=== PATIENT | male | born 1955 | race Caucasian/White ===

== ENCOUNTER 2017-02-19 13:21 | Observation (INO) | payer OTHER ==
[~2017-02-19] VITALS: Ht 180.3 cm; Wt 115.0 kg
[~2017-02-19 13:21] MED LIST: AMLO5 PO; PRAV20 PO; TOPI25 PO
[2017-02-19 13:24] VITALS: BP 163/83; PULSE 72; RESP 16; TEMP 98.3; O2SAT 93
[2017-02-19] MEDS ORDERED: SODIUM CHLORIDE 0.9% FLUSH 10 ML FLUSH IVF PRN (15:15)
[2017-02-19] MEDS ORDERED: ASPIRIN 81 MG CHEW TAB PO ONE (15:15)
[2017-02-19 15:24] LABS: AUTOMATED NEUTROPHIL # 5.2 TH/MM3 (1.8-7.7); BASOPHIL % 0.6 % (0.0-2.0); EOSINOPHIL # 0.3 TH/MM3 (0-0.4); HEMATOCRIT 41.3 % (39.0-51.0); HEMO FLAGS DIFF FINAL; LYMPH % 19.2 % (9.0-44.0); LYMPHOCYTE # 1.5 TH/MM3 (1.0-4.8); MEAN CELL VOLUME 89.3 FL (80.0-100.0); MEAN CORPUSCULAR HGB CONC 34.8 % (32.0-36.0); MONO % 7.2 % (0.0-8.0); PLATELET COUNT 217 TH/MM3 (150-450); RED BLOOD COUNT 4.62 MIL/MM3 (4.50-5.90); RED CELL DISTRIBUTION WIDTH 13.2 % (11.6-17.2); WHITE BLOOD COUNT 7.6 TH/MM3 (4.0-11.0)
--- NOTE | 2017-02-19 15:26 | PD ---
HPI Chief Complaint: Chest Pain Time Seen by Provider: 14:53 Travel History International Travel<30 days: No Contact w/Intl Traveler<30days: No Traveled to known affect area: No History of Present Illness HPI This is a 61-year-old gentleman with a history of hypertension, hyperlipidemia, who presents today with complaints of left sided chest pain with radiation down his left arm. Patient reports that he experienced the left sided chest pain about 10 AM. He reports it as a pressure and heaviness. He reports the pain radiates to his left shoulder and down his left arm. He reports that as an achy sensation and also reports that he has tingling and numbness to his fingers. He does give history that he has the achy sensation down his arm with a tingling at times without the chest pain. He reports that he does have a history of cervical spine degenerative changes. Patient also gives history of these had a "full sensation" in his head. He also reports that he has some blurry vision in his left eye. The patient does wear glasses and states that he had similar symptoms about a year and a half ago and that's when I told him he needed glasses. He has not seen the bolt header in a while and does admit that is possible vision related secondary to him doing a lot of computer work and reading. There is no associated nausea or diaphoresis with the chest pain. He denies any shortness of breath. PFSH Past Medical History Blood Disorders: No Heart Rhythm Problems: No Cancer: No Cardiac Catheterization: No Cardiovascular Problems: Yes High Cholesterol: Yes Chest Pain: No Congestive Heart Failure: No Diabetes: No Endocrine: No Genitourinary: No Hypertension: No Immune Disorder: No Musculoskeletal: No Neurologic: Yes (headaches, "pinched nerve" in neck ) Psychiatric: No Reproductive: No Respiratory: No Myocardial Infarction: No Past Surgical History Coronary Artery Bypass Graft: No Social History Alcohol Use: No Tobacco Use: No Substance Use: No (marijuana, cocaine, crack, speed, none x 6 years ) Allergies-Medications (Allergen,Severity, Reaction): Coded Allergies: No Known Allergies (Verified , 02/19/17) Reported Meds & Prescriptions Reported Meds & Active Scripts Active Reported Artificial Tears Opth Drops (Polyvinyl Alcohol) 1.4% Soln 1-2 Drop EACH EYE PRN PRN Pravastatin 40 Mg Tab 40 Mg PO DAILY Amlodipine (Amlodipine Besylate) 5 Mg Tab 5 Mg PO DAILY PRN Review of Systems Except as stated in HPI: all other systems reviewed are Neg General / Constitutional: No: Fever, Chills Eyes: Positive: Blurred Vision HENT: Positive: Headaches (no true had pain but fullness), No: Lightheadedness , Neck Stiffness, Neck Pain Cardiovascular: Positive: Chest Pain or Discomfort (left sided), No: Palpitations, Irregular Rhythm Respiratory: No: Cough, Shortness of Breath Gastrointestinal: No: Nausea, Vomiting, Abdominal Pain Musculoskeletal: No: Pain Neurologic: Positive: Headache, No: Weakness, Dizziness, Change in Mentation Physical Exam Narrative GENERAL: Well developed well-nourished male in no acute respiratory distress. SKIN: Focused skin assessment warm/dry. HEAD: Atraumatic. Normocephalic. EYES: No scleral icterus. No injection or drainage. ENT: No nasal bleeding or discharge. Mucous membranes pink and moist. NECK: Trachea midline. Supple. CARDIOVASCULAR: Regular rate and rhythm. No murmur appreciated. RESPIRATORY: No accessory muscle use. Clear to auscultation. Breath sounds equal bilaterally. GASTROINTESTINAL: Abdomen soft, non-tender, nondistended. MUSCULOSKELETAL: No obvious deformities. No edema. NEUROLOGICAL: Awake and alert. No obvious cranial nerve deficits. Motor grossly within normal limits. Normal speech. Data Data Last Documented VS Vital Signs Date Time Temp Pulse Resp B/P Pulse Ox O2 Delivery O2 Flow Rate FiO2 02/19/17 15:39 61 16 139/76 96 Room Air 02/19/17 13:24 98.3 Orders Electrocardiogram (02/19/17 ) Basic Metabolic Panel (Bmp) (02/19/17 15:05) Ckmb (Isoenzyme) Profile (02/19/17 15:05) Complete Blood Count With Diff (02/19/17 15:05) Magnesium (Mg) (02/19/17 15:05) Prothrombin Time / Inr (Pt) (02/19/17 15:05) Act Partial Throm Time (Ptt) (02/19/17 15:05) Troponin I (02/19/17 15:05) Chest, Single Ap (02/19/17 15:05) Ecg Monitoring (02/19/17 15:05) Bilateral Bp Monitoring (02/19/17 15:05) Iv Access Insert/Monitor (02/19/17 15:05) Oximetry (02/19/17 15:05) Oxygen Administration (02/19/17 15:05) Aspirin Chew (Aspirin Chew) (02/19/17 15:15) Sodium Chloride 0.9% Flush (Ns Flush) (02/19/17 15:15) Ct Brain W/O Iv Contrast(Rout) (02/19/17 15:05) CKMB (02/19/17 15:10) CKMB% (02/19/17 15:10) Admit Order (Ed Use Only) (02/19/17 16:28) Labs Laboratory Tests Test 02/19/17 15:10 White Blood Count 7.6 TH/MM3 Red Blood Count 4.62 MIL/MM3 Hemoglobin 14.3 GM/DL Hematocrit 41.3 % Mean Corpuscular Volume 89.3 FL Mean Corpuscular Hemoglobin 31.0 PG Mean Corpuscular Hemoglobin 34.8 % Concent Red Cell Distribution Width 13.2 % Platelet Count 217 TH/MM3 Mean Platelet Volume 8.2 FL Neutrophils (%) (Auto) 69.0 % Lymphocytes (%) (Auto) 19.2 % Monocytes (%) (Auto) 7.2 % Eosinophils (%) (Auto) 4.0 % Basophils (%) (Auto) 0.6 % Neutrophils # (Auto) 5.2 TH/MM3 Lymphocytes # (Auto) 1.5 TH/MM3 Monocytes # (Auto) 0.5 TH/MM3 Eosinophils # (Auto) 0.3 TH/MM3 Basophils # (Auto) 0.0 TH/MM3 CBC Comment DIFF FINAL Differential Comment Prothrombin Time 10.4 SEC Prothromb Time International 0.9 RATIO Ratio Activated Partial 28.9 SEC Thromboplast Time Sodium Level 139 MEQ/L Potassium Level 3.9 MEQ/L Chloride Level 104 MEQ/L Carbon Dioxide Level 27.9 MEQ/L Anion Gap 7 MEQ/L Blood Urea Nitrogen 14 MG/DL Creatinine 1.10 MG/DL Estimat Glomerular Filtration 68 ML/MIN Rate Random Glucose 90 MG/DL Calcium Level 8.6 MG/DL Magnesium Level 2.2 MG/DL Total Creatine Kinase 296 U/L Creatine Kinase MB 2.2 NG/ML Troponin I LESS THAN 0.02 NG/ML MDM Medical Decision Making Medical Screen Exam Complete: Yes Emergency Medical Condition: Yes Differential Diagnosis ACS versus musculoskeletal pain versus cervical radiculopathy Narrative Course 61-year-old gentleman who presents today with complaints of sided chest pain that radiates to his left arm. Patient states that he also has achy sensation and tingling in his left arm. Patient also complaining of full sensation in his head with blurry vision left eye. The patient does a lot of reading is scheduled for an optometry exam at the [facility]. The patient has no focal neurologic symptoms. Looking back in his history he had similar complaints a urinary half ago and was found to have poor vision. At that time they started him on a blood pressure pill and a statin. EKG shows no evidence of acute findings. Cardiac enzymes are within normal limits. Given the patient's presenting symptoms and his concern for having a "heart" issue, we'll place him in the chest pain center for rule out protocol. The patient is amenable to this plan. Diagnosis Primary Impression: Chest pain Additional Impressions: History of hypertension History of hyperlipidemia Blurred vision, left eye Aden Gamino MD Feb 19, 2017 15:26
[2017-02-19 15:39] VITALS: BP 139/76; PULSE 61; RESP 16; O2SAT 96
[2017-02-19 15:46] LABS: INTERNATIONAL NORMALIZED RATIO 0.9 RATIO; PROTHROMBIN TIME - PATIENT 10.4 SEC (9.8-11.6)
[2017-02-19] MEDS ORDERED: POLY99.0 EACH EYE (15:47)
[2017-02-19] MEDS ORDERED: AMLO5TAB2 PO (15:47)
[2017-02-19] MEDS ORDERED: PRAV40TA2 PO (15:47)
[2017-02-19 15:51] LABS: APTT (PATIENT) 28.9 SEC (24.3-30.1)
[2017-02-19 15:56] LABS: ANION GAP 7 MEQ/L (5-15); BICARBONATE 27.9 MEQ/L (21.0-32.0); BLOOD UREA NITROGEN 14 MG/DL (7-18); CHLORIDE 104 MEQ/L (98-107); GLOMERULAR FILTRATION RATE 68 ML/MIN (>89); MAGNESIUM 2.2 MG/DL (1.5-2.5); POTASSIUM 3.9 MEQ/L (3.5-5.1); SODIUM (NA) 139 MEQ/L (136-145)
[2017-02-19 15:59] LABS: CREATINE KINASE 296 U/L (39-308)
[2017-02-19 16:12] LABS: CKMB 2.2 NG/ML (0.5-3.6)
--- NOTE | 2017-02-19 16:20 | RADRPT ---
EXAM DATE/TIME: 02/19/2017 15:18 [facility] COMPARISON: No previous studies available for comparison. INDICATIONS : Chest pain. MEDICAL HISTORY : None. SURGICAL HISTORY : None. ENCOUNTER: Initial ACUITY: 1 day PAIN SCORE: 0/10 LOCATION: Bilateral chest FINDINGS: Single AP view of the chest. The lungs are clear. Cardiomediastinal silhouette within normal limits. No evidence of pleural effusion or pneumothorax. CONCLUSION: No acute cardiopulmonary disease identified. King Licea MD on February 19, 2017 at 16:18 Board Certified Radiologist. This report was verified electronically.
--- NOTE | 2017-02-19 16:52 | RADRPT ---
EXAM DATE/TIME: 02/19/2017 15:27 [facility] COMPARISON: CT BRAIN W/O CONTRAST, November 07, 2015, 13:08. INDICATIONS : Chest pain that radiates to left arm with blurry vision . RADIATION DOSE: 37.30 CTDIvol (mGy) MEDICAL HISTORY : Cardiovascular disease. SURGICAL HISTORY : None. ENCOUNTER: Initial ACUITY: 1 day PAIN SCALE: 3/10 LOCATION: cranial TECHNIQUE: Multiple contiguous axial images were obtained of the head. Using automated exposure control and adj ustment of the mA and/or kV according to patient size, radiation dose was kept as low as reasonably a chievable to obtain optimal diagnostic quality images. FINDINGS: CEREBRUM: The ventricles are normal for age. No evidence of midline shift, mass lesion, hemorrhage or acute in farction. No extra-axial fluid collections are seen. POSTERIOR FOSSA: The cerebellum and brainstem are intact. The 4th ventricle is midline. The cerebellopontine angle i s unremarkable. EXTRACRANIAL: The visualized portion of the orbits is intact. SKULL: The calvaria is intact. No evidence of skull fracture. CONCLUSION: 1. No evidence of acute intracranial pathology. No masses are identified. Luke Self MD on February 19, 2017 at 16:50 Board Certified Radiologist. This report was verified electronically.
--- NOTE | 2017-02-19 17:22 | HHI.HP ---
HPI Primary Care Physician [facility] Chief Complaint Chest pain History of Present Illness This is a 61-year-old male with history of hypertension, hyperlipidemia, and past tobacco abuse that presents to the ED via private vehicle complaining of a left-sided sharp chest discomfort that began this morning while at work. It will last for split-second but reoccurred multiple times. Found nothing in particular to bring on the discomfort. He became concerned when he began have shortness of breath with walking. This was not necessarily associated with his discomforts. He also had a numbness reading from the neck down to his left arm with tingling in his left fingers. Also complained of bilateral blurred vision. Denied weakness in extremities. Some of these symptoms he had in the past. He was here in 2014 and was seen by a neurologist and was found to have degenerative the issues within his cervical spine and underwent physical therapy and followed up with a neurologist at the [facility]. He is not sure if the symptoms from his neck into his arm are related to that or if it's related to his discomfort in his chest. Denies recent illness. Denies fevers or chills. He had a nonischemic nuclear exercise treadmill stress test in 2009. No cardiac workup since. Review of Systems General: Patient denies fevers, chills recent, and recent travel HEENT: Patient denies headache, sore throat, difficulty swallowing. Cardiovascular: Has the chest discomfort as mentioned above. Denies sensation of heart beating rapidly or irregularly. No syncope. Denies diaphoresis. Respiratory: Occasional shortness of breath. Denies inspirational chest discomfort. Denies coughing wheezing or hemoptysis. GI: Patient denies nausea, vomiting, diarrhea, abdominal pain, bloody stools. Musculoskeletal: Patient denies joint pain or edema. Denies calf pain or edema. Complaint of left-sided neck discomfort that seemed to radiate down his left arm. Neurovascular: Complain of a discomfort radiating from his left neck down his left arm with tingling in his fingertips. Patient denies weakness in extremities. Denies headache. Endocrine: Denies polyuria and polydipsia. Hematologic: Denies easy bruising. Skin: Denies rash or itching. Past Family Social History Allergies: Coded Allergies: No Known Allergies (Verified , 02/19/17) Past Medical History Hypertension, hyperlipidemia, past history of tobacco abuse, cervical degenerative changes. Denies diabetes and known CAD. Past Surgical History Noncontributory. Reported Medications Reported Meds & Active Scripts Active Reported Artificial Tears Opth Drops (Polyvinyl Alcohol) 1.4% Soln 1-2 Drop EACH EYE PRN PRN Pravastatin 40 Mg Tab 40 Mg PO DAILY Amlodipine (Amlodipine Besylate) 5 Mg Tab 5 Mg PO DAILY PRN Active Ordered Medications Current Medications Medications (Trade) Dose Ordered Sig/Zane Route Start Time Stop Time Status Last Admin (NS Flush) 2 ml UNSCH PRN IVF 02/19/17 15:15 Family History His father has CAD. Social History Patient quit smoking cigarettes 6-1/2 years ago as well as quitting illicit drug use and alcohol abuse. 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 He used to smoke 2-1/2 packs a day for about 30 years. Physical Exam Vital Signs Vital Signs Date Time Temp Pulse Resp B/P Pulse Ox O2 Delivery O2 Flow Rate FiO2 02/19/17 15:39 61 16 139/76 96 Room Air 02/19/17 13:24 98.3 72 16 163/83 93 Physical Exam GENERAL: This is a well-nourished, well-developed patient, in no apparent distress. Patient speaks in clear complete sentences. Patient is pleasant. HEENT: Head is atraumatic and normocephalic. Neck is supple without lymphadenopathy and trachea is midline. No JVD or carotid bruits. CARDIOVASCULAR: Grade 2 systolic murmur left sternal border. Regular rate and rhythm without gallops, or rubs. RESPIRATORY: Left upper chest wall is a tender spot that is the same area that was hurting earlier today. Clear to auscultation. Breath sounds equal bilaterally. No wheezes, rales, or rhonchi. No use of accessory muscles. GASTROINTESTINAL: Abdomen is nontender, nondistended. Abdomen soft. No obvious pulsatile mass or bruit. No CVA tenderness. Strong femoral pulses bilaterally. Normal bowel sounds in all quadrants. MUSCULOSKELETAL: Patient is moving upper and lower extremities freely. No calf tenderness or edema, no Homans sign. Strong pulses in upper and lower extremities. NEUROLOGICAL: Patient is alert and oriented. Cranial nerves 2-12 are grossly intact. No focal deficits and speech is clear. SKIN: No rash and turgor is normal. Laboratory Laboratory Tests Test 02/19/17 15:10 White Blood Count 7.6 Red Blood Count 4.62 Hemoglobin 14.3 Hematocrit 41.3 Mean Corpuscular Volume 89.3 Mean Corpuscular Hemoglobin 31.0 Mean Corpuscular Hemoglobin 34.8 Concent Red Cell Distribution Width 13.2 Platelet Count 217 Mean Platelet Volume 8.2 Neutrophils (%) (Auto) 69.0 Lymphocytes (%) (Auto) 19.2 Monocytes (%) (Auto) 7.2 Eosinophils (%) (Auto) 4.0 Basophils (%) (Auto) 0.6 Neutrophils # (Auto) 5.2 Lymphocytes # (Auto) 1.5 Monocytes # (Auto) 0.5 Eosinophils # (Auto) 0.3 Basophils # (Auto) 0.0 CBC Comment DIFF FINAL Differential Comment Prothrombin Time 10.4 Prothromb Time International 0.9 Ratio Activated Partial 28.9 Thromboplast Time Sodium Level 139 Potassium Level 3.9 Chloride Level 104 Carbon Dioxide Level 27.9 Anion Gap 7 Blood Urea Nitrogen 14 Creatinine 1.10 Estimat Glomerular Filtration 68 Rate Random Glucose 90 Calcium Level 8.6 Magnesium Level 2.2 Total Creatine Kinase 296 Creatine Kinase MB 2.2 Troponin I LESS THAN 0.02 Result Diagram: 02/19/17 1510 02/19/17 1510 Imaging Last [address] 02/19/17 1505 Signed Impressions: Service Date/Time: Sunday, February 19, 2017 15:27 - CONCLUSION: 1. No evidence of acute intracranial pathology. No masses are identified. Luke Self MD Chest X-Ray 02/19/17 1505 Signed Impressions: Service Date/Time: Sunday, February 19, 2017 15:18 - CONCLUSION: No acute cardiopulmonary disease identified. King Licea MD Course Initial EKG is sinus rhythm without significant ST segment depressions or elevations. Assessment and Plan Assessment and Plan * Chest pain: Patient will continue to have serial cardiac enzymes and EKGs for ruling out purposes. He will be seen by Dr. Luke Hassan of cardiology in the chest pain center in the morning and will likely undergo another nuclear ETT if he rules out. He will likely be discharged home with instructions to follow-up with his physician if stress testing were to be nonischemic. * Hypertension: Continue current medication. * Hyperlipidemia: Continue current medication. Patient is stable this time. He is agreeable to this plan. Lenard Ching Feb 19, 2017 17:22
[2017-02-19] MEDS ORDERED: SODIUM CHLORIDE 0.9% FLUSH 5 ML FLUSH IVF PRN (17:30)
[2017-02-19] MEDS ORDERED: ALPRAZolam 0.25 MG TAB PO PRN (17:30)
[2017-02-19] MEDS ORDERED: ACETAMINOPHEN/HYDROcodone 325 MG/7.5 MG TAB PO PRN (17:30)
[2017-02-19] MEDS: PANTOPRAZOLE SOD 40 MG DELAYED RELEASE TAB PO SCH (17:30)
[2017-02-19] MEDS ORDERED: RESP: ALBUTEROL 2.5 MG/IPRATROPIUM 0.5 MG NEB (PRN) INH (17:30)
[2017-02-19] MEDS ORDERED: ONDANSETRON HCL 4 MG/2 ML VIAL IV PRN (17:30)
[2017-02-19] MEDS ORDERED: ACETAMINOPHEN 500 MG CPLT PO PRN (17:30)
[2017-02-19] MEDS ORDERED: cloNIDine HCL 0.1 MG TAB PO PRN (17:30)
[2017-02-19 19:21] LABS: CREATINE KINASE 278 U/L (39-308)
[2017-02-19 19:34] LABS: CKMB 1.9 NG/ML (0.5-3.6)
[2017-02-19 20:07] VITALS: BP 185/88; PULSE 50; RESP 20; TEMP 97.5; O2SAT 97
[2017-02-19] MEDS: SODIUM CHLORIDE 0.9% FLUSH 5 ML FLUSH IVF SCH (21:00)
[2017-02-19 21:40] LABS: CREATINE KINASE 236 U/L (39-308)
[2017-02-19 21:52] LABS: CKMB 2.2 NG/ML (0.5-3.6)
--- NOTE | 2017-02-19 22:24 | EKG ---
Date Performed: 02/19/2017 Time Performed: 18:37:59 PTAGE: 61 years EKG: SINUS BRADYCARDIA VOLTAGE CRITERIA FOR LVH ABNORMAL ECG PREVIOUS TRACING : 02/19/2017 13.50 Compared to prior tracing no significant change DOCTOR: Chemo Rodriguez Interpretating Date/Time 02/19/2017 22:20:43
--- NOTE | 2017-02-19 22:33 | EKG ---
Date Performed: 02/19/2017 Time Performed: 13:50:18 PTAGE: 61 years EKG: Sinus rhythm VOLTAGE CRITERIA FOR LVH NONSPECIFIC T-WAVE ABNORMALITY ABNORMAL ECG Compared to the PREVIOUS TRACING PVCs no longer present DOCTOR: Chemo Rodriguez Interpretating Date/Time 02/19/2017 22:32:05
[2017-02-20 00:07] VITALS: PULSE 51
[2017-02-20 00:33] VITALS: BP 120/57; PULSE 55; RESP 20; TEMP 98.7; O2SAT 95
[2017-02-20 04:53] VITALS: BP 141/87; PULSE 56; RESP 20; TEMP 97.6; O2SAT 95
[2017-02-20 07:39] VITALS: BP 136/82; PULSE 53; RESP 18; TEMP 97.3; O2SAT 94
[2017-02-20] MEDS: PANTOPRAZOLE SOD 40 MG DELAYED RELEASE TAB PO SCH (08:21)
[2017-02-20] MEDS: SODIUM CHLORIDE 0.9% FLUSH 5 ML FLUSH IVF SCH (08:25)
[2017-02-20] MEDS ORDERED: ASPIRIN 325 MG TAB PO SCH (09:00)
[2017-02-20] MEDS ORDERED: amLODIPine BESYLATE 5 MG TAB PO SCH (09:00)
[2017-02-20] MEDS ORDERED: PRAVASTATIN SOD 40 MG TAB PO SCH (09:00)
[2017-02-20] MEDS ORDERED: REGADENOSON INJ 0.4 MG/5 ML SYR ONE (09:21)
--- NOTE | 2017-02-20 10:46 | RADRPT ---
EXAM DATE/TIME: 02/20/2017 08:47 [facility] COMPARISON: No previous studies available for comparison. INDICATIONS : Left chest pain radiating to left arm for 1 day. Angina. DOSE: 35 mCi Tc99m Myoview at stress. 11 mCi Tc99m Myoview at rest. 0.4 mg Lexiscan STRESS SYMPTOMS: Tingling, chest tightness, head pressure and nausea. EJECTION FRACTION: 59% MEDICAL HISTORY : Hypercholesterolemia. Hypertension. Gastroesophageal reflux disease. Substance abuse. SURGICAL HISTORY : None. ENCOUNTER: Initial ACUITY: 1 day PAIN SCALE: 5/10 LOCATION: Left chest TECHNIQUE: The patient underwent pharmacologic stress with infusion of prescribed dose. Continuous ECG tracing was monitored during stress. Gated SPECT imaging was performed after stress and conventional SPECT i maging was performed at rest. The examination was performed on a SPECT/CT scanner, both attenuation and non-corrected datasets were reviewed. FINDINGS: DISTRIBUTION: The maximum perfused segment at stress is in the inferior wall. PERFUSION STUDY: There is minimal redistribution in the mid anterior wall of borderline significance GATED STUDY: There is intact wall motion and thickening without hypokinetic or dyskinetic segments. CONCLUSION: Minimal redistribution anterior wall involving the small segment myocardium with normal wall motion o f borderline significance. RISK CATEGORY: Low (<1% Annual Mortality Rate) Da Mckeon MD FACR on February 20, 2017 at 10:35 Board Certified Radiologist. This report was verified electronically.
--- NOTE | 2017-02-20 11:10 | HHI.DCPOC ---
Discharge Care Plan Diagnosis: (1) Chest pain (2) HTN (hypertension) (3) HLD (hyperlipidemia) Goals to Promote Your Health * To prevent worsening of your condition and complications * To maintain your health at the optimal level Directions to Meet Your Goals Take your medications as prescribed Follow your dietary instruction Follow activity as directed Keep your appointments as scheduled Take your immunizations and boosters as scheduled If your symptoms worsen call your PCP, if no PCP go to Urgent Care Center or Emergency Room Smoking is Dangerous to Your Health. Avoid second hand smoke Call the 24-hour hour crisis hotline for domestic abuse at Lenard Ching Feb 20, 2017 11:10
[2017-02-20 11:21] VITALS: BP 136/61; PULSE 91; RESP 17; TEMP 98.1; O2SAT 94
[2017-02-20 11:39] VITALS: PULSE 56
--- NOTE | 2017-02-20 13:38 | EKG ---
Date Performed: 02/19/2017 Time Performed: 21:18:16 PTAGE: 61 years EKG: SINUS BRADYCARDIA MODERATE VOLTAGE CRITERIA FOR LVH, CONSIDER NORMAL VARIANT BORDERLINE ECG PREVIOUS TRACING : 02/19/2017 18.37 Since previous tracing, no significant change noted DOCTOR: Luke Hassan Interpretating Date/Time 02/20/2017 13:37:40
--- NOTE | 2017-02-20 13:48 | TR ---
Date Performed: 02/20/2017 Time Performed: 09:17:05 DOCTOR: Luke Hassan DRUG LIST: CLINICAL HISTORY: REASON FOR TEST: CHEST PAIN REASON FOR ENDING: OBSERVATION: CONCLUSION: Lexiscan stress test was performed under standard four minute protocol. Radionuclid e was injected one minute prior to ending the test. No electrocardiographic abormalities were present to suggest ischemia. Nuclear imaging and interpretation are pending. COMMENTS:
== END 2017-02-20 11:47 | disposition home or self-care (01) ==
LOC: NEPE 13:21 → NEDA 16:31 → NEPGCP 19:02
PROVIDERS: ADMIT Internal Medicine Interventional Cardiology; ATTEND Internal Medicine Interventional Cardiology
DX: R07.9 Chest pain, unspecified (principal); I10 Essential (primary) hypertension; E78.5 Hyperlipidemia, unspecified; M79.602 Pain in left arm; R20.2 Paresthesia of skin; R20.0 Anesthesia of skin; H53.8 Other visual disturbances; E78.00 Pure hypercholesterolemia, unspecified; R51 Headache; Z87.891 Personal history of nicotine dependence; R06.02 Shortness of breath; R00.1 Bradycardia, unspecified; R94.31 Abnormal electrocardiogram [ECG] [EKG]
CPT/HCPCS: 70450; 71010; 78452; 80048; 82550; 82552; 83735; 84484; 85025; 85610; 85730; 93005; 93017; 99285; A9502; G0378; J2785

== ENCOUNTER 2017-02-21 12:21 | Observation (INO) | payer OTHER ==
[2017-02-21] VITALS (9 sets, daily range): BP systolic 124–135; BP diastolic 75–83; PULSE 54–62; RESP 16–18; TEMP 98–98.3; O2SAT 95–97
[~2017-02-21] VITALS: Ht 175.3 cm; Wt 106.8 kg
[~2017-02-21 12:21] MED LIST changes: +AMLO5TAB2 PO; +IOHEXOL 350 MG/ML 100 ML BTL (for Cath Lab) OTHER ONE; +IOHEXOL 350 MG/ML 50 ML BTL (for Cath Lab) OTHER ONE; +POLY99.0 EACH EYE; +PRAV40TA2 PO
--- NOTE | 2017-02-21 12:47 | PD ---
HPI Chief Complaint: chest pain Time Seen by Provider: 12:47 Travel History International Travel<30 days: No Contact w/Intl Traveler<30days: No Traveled to known affect area: No History of Present Illness HPI 61-year-old male came to the emergency room sent from [place] for chest pain which is left-sided radiating down to his left arm. Patient says it feels like a pressure on the chest and the arm feels numb. He has had this pain on and off for few days now. In fact he was in the emergency room and admitted to the chest pain center couple days ago for the same thing. He had a chemical stress test and was discharged home. However his pain continued and he went back to [place] today and they asked him to go back to the emergency room. Currently he says he is chest pain-free but his arm feels a little numb. No history of shortness of breath or diaphoresis. No history of syncopal episode. No history of arm weakness. Vital signs were relatively stable. Patient does not have history of coronary artery disease. He was given 4 baby aspirin at [place] before coming here. [facility] Past Medical History Narrative Medical List of his past medical, surgical, social and family history was reviewed from the nursing note. Blood Disorders: No Heart Rhythm Problems: No Cancer: No Cardiac Catheterization: No Cardiovascular Problems: Yes High Cholesterol: Yes Chest Pain: No Congestive Heart Failure: No Diabetes: No Endocrine: No Gastrointestinal Disorders: Yes (Hx: GERD) Genitourinary: No Hypertension: No Immune Disorder: No Musculoskeletal: No Neurologic: Yes (headaches, "pinched nerve" in neck ) Psychiatric: No Reproductive: No Respiratory: No Myocardial Infarction: No Past Surgical History Coronary Artery Bypass Graft: No Other Surgery: Yes Social History Alcohol Use: No Tobacco Use: No Substance Use: No (marijuana, cocaine, crack, speed, none x 6 years ) Allergies-Medications (Allergen,Severity, Reaction): Coded Allergies: No Known Allergies (Verified , 02/21/17) Comments No known drug allergies. Reported Meds & Prescriptions Reported Meds & Active Scripts Active Reported Artificial Tears Opth Drops (Polyvinyl Alcohol) 1.4% Soln 1-2 Drop EACH EYE PRN PRN Pravastatin 40 Mg Tab 40 Mg PO DAILY Amlodipine (Amlodipine Besylate) 5 Mg Tab 5 Mg PO DAILY PRN Narrative Medication List of his home medications reviewed from the nursing note. Review of Systems Except as stated in HPI: all other systems reviewed are Neg Physical Exam Narrative GENERAL: Awake, alert, no obvious distress SKIN: Focused skin assessment warm/dry. HEAD: Atraumatic. Normocephalic. EYES: Pupils equal and round. No scleral icterus. No injection or drainage. ENT: No nasal bleeding or discharge. Mucous membranes pink and moist. NECK: Trachea midline. No JVD. CARDIOVASCULAR: Regular rate and rhythm. No murmur appreciated. RESPIRATORY: No accessory muscle use. Clear to auscultation. Breath sounds equal bilaterally. GASTROINTESTINAL: Abdomen soft, non-tender, nondistended. Hepatic and splenic margins not palpable. MUSCULOSKELETAL: No obvious deformities. No clubbing. No cyanosis. No edema. NEUROLOGICAL: Awake and alert. No obvious cranial nerve deficits. Motor grossly within normal limits. Normal speech. PSYCHIATRIC: Appropriate mood and affect; insight and judgment normal. Data Data Last Documented VS Vital Signs Date Time Temp Pulse Resp B/P Pulse Ox O2 Delivery O2 Flow Rate FiO2 02/21/17 12:42 61 18 124/76 95 Orders Electrocardiogram (02/21/17 13:05) Basic Metabolic Panel (Bmp) (02/21/17 13:05) Ckmb (Isoenzyme) Profile (02/21/17 13:05) Complete Blood Count With Diff (02/21/17 13:05) Magnesium (Mg) (02/21/17 13:05) Prothrombin Time / Inr (Pt) (02/21/17 13:05) Act Partial Throm Time (Ptt) (02/21/17 13:05) Troponin I (02/21/17 13:05) CKMB (02/21/17 13:15) CKMB% (02/21/17 13:15) Heparin Infusion ELIO.Q1H (02/21/17 14:17) Heparin Inj (Heparin Inj) (02/21/17 20:30) Heparin Inj (Heparin Inj) (02/21/17 20:30) Heparin-D5w Inj (Heparin-D5w Inj) (02/21/17 14:30) Act Partial Throm Time (Ptt) (02/21/17 21:17) Heparin-Ns/Pf Inj (Heparin-Ns/Pf Inj) (02/21/17 14:47) Admit Order (Ed Use Only) (02/21/17 15:02) Labs Laboratory Tests Test 02/21/17 13:15 White Blood Count 7.4 TH/MM3 Red Blood Count 4.71 MIL/MM3 Hemoglobin 14.2 GM/DL Hematocrit 42.1 % Mean Corpuscular Volume 89.3 FL Mean Corpuscular Hemoglobin 30.1 PG Mean Corpuscular Hemoglobin 33.8 % Concent Red Cell Distribution Width 13.4 % Platelet Count 210 TH/MM3 Mean Platelet Volume 8.4 FL Neutrophils (%) (Auto) 74.9 % Lymphocytes (%) (Auto) 16.4 % Monocytes (%) (Auto) 5.7 % Eosinophils (%) (Auto) 2.6 % Basophils (%) (Auto) 0.4 % Neutrophils # (Auto) 5.6 TH/MM3 Lymphocytes # (Auto) 1.2 TH/MM3 Monocytes # (Auto) 0.4 TH/MM3 Eosinophils # (Auto) 0.2 TH/MM3 Basophils # (Auto) 0.0 TH/MM3 CBC Comment DIFF FINAL Differential Comment Prothrombin Time 10.6 SEC Prothromb Time International 1.0 RATIO Ratio Activated Partial 28.3 SEC Thromboplast Time Sodium Level 139 MEQ/L Potassium Level 3.7 MEQ/L Chloride Level 104 MEQ/L Carbon Dioxide Level 28.4 MEQ/L Anion Gap 7 MEQ/L Blood Urea Nitrogen 15 MG/DL Creatinine 1.01 MG/DL Estimat Glomerular Filtration 75 ML/MIN Rate Random Glucose 91 MG/DL Calcium Level 8.4 MG/DL Magnesium Level 2.2 MG/DL Total Creatine Kinase 177 U/L Creatine Kinase MB 1.5 NG/ML Troponin I LESS THAN 0.02 NG/ML MDM Medical Decision Making Medical Screen Exam Complete: Yes Emergency Medical Condition: Yes Medical Record Reviewed: Yes Interpretation(s) Twelve-lead EKG was reviewed by me. Normal sinus rhythm, left axis deviation, old inferior KS, nonspecific ST-T wave changes, bradycardia. Heart rate of 59 bpm. Differential Diagnosis ACS, non-STEMI, nonspecific chest pain Narrative Course 2:15 PM I looked at his stress test report. It was a nuclear chemical stress test. The cardiac part of it was negative at the nuclear part showed some abnormal wall motion. I spoke with Dr. Sewell from cardiology and expressed to him my concerns and that in my opinion patient should have a cardiac catheterization at this point and that I'll start him on heparin drip for unstable angina. He agreed. He came in to see the patient. Blood test results came back and were within normal limits. Awaiting for the hospitalist to call back for admission. Critical Care Narrative Aggregate critical care time was 30 minutes. Time to perform other separately billable procedures was not included in the critical care time. My time did not include minutes spent treating any other patients simultaneously or on activities that did not directly contribute to the patient's treatment. The services I provided to this patient were to treat and/or prevent clinically significant deterioration that could result in: Unstable angina, heparin drip I provided critical care services requiring my management, as noted below: Chart data review, documentation time, medication orders and management, vital sign assessments/reviewing monitor data, ordering and reviewing lab tests, ordering and interpreting/reviewing x-rays and diagnostic studies, care of the patient and discussion of the patient with the admitting physicians. Procedures EKG Prior to Arrival: Yes Physician Communication Physician Communication Dr. Sewell Diagnosis Primary Impression: Unstable angina Admitting Information Admitting Physician Requests: Observation Scripts Pantoprazole 40 Mg Tab40 Mg PO DAILY #30 TAB Prov:Waqar Coronel MD 02/22/17 Aspirin 325 Mg [id number] Mg PO DAILY #0 TAB Prov:Waqar Coronel MD 02/22/17 Chantel Heller MD Feb 21, 2017 12:47
[2017-02-21 13:39] LABS: AUTOMATED NEUTROPHIL # 5.6 TH/MM3 (1.8-7.7); BASOPHIL % 0.4 % (0.0-2.0); EOSINOPHIL # 0.2 TH/MM3 (0-0.4); EOSINOPHIL % 2.6 % (0.0-4.0); HEMATOCRIT 42.1 % (39.0-51.0); HEMO FLAGS DIFF FINAL; LYMPH % 16.4 % (9.0-44.0); LYMPHOCYTE # 1.2 TH/MM3 (1.0-4.8); MEAN CELL VOLUME 89.3 FL (80.0-100.0); MEAN CORPUSCULAR HEMOGLOBIN 30.1 PG (27.0-34.0); MEAN CORPUSCULAR HGB CONC 33.8 % (32.0-36.0); MONO % 5.7 % (0.0-8.0); NEUT % 74.9 % (16.0-70.0); PLATELET COUNT 210 TH/MM3 (150-450); RED BLOOD COUNT 4.71 MIL/MM3 (4.50-5.90); RED CELL DISTRIBUTION WIDTH 13.4 % (11.6-17.2); WHITE BLOOD COUNT 7.4 TH/MM3 (4.0-11.0)
[2017-02-21 13:51] LABS: APTT (PATIENT) 28.3 SEC (24.3-30.1); PROTHROMBIN TIME - PATIENT 10.6 SEC (9.8-11.6)
[2017-02-21 13:56] LABS: ANION GAP 7 MEQ/L (5-15); BICARBONATE 28.4 MEQ/L (21.0-32.0); BLOOD UREA NITROGEN 15 MG/DL (7-18); CHLORIDE 104 MEQ/L (98-107); GLOMERULAR FILTRATION RATE 75 ML/MIN (>89); MAGNESIUM 2.2 MG/DL (1.5-2.5); POTASSIUM 3.7 MEQ/L (3.5-5.1); SODIUM (NA) 139 MEQ/L (136-145)
[2017-02-21 13:58] LABS: CREATINE KINASE 177 U/L (39-308)
[2017-02-21 14:10] LABS: CKMB 1.5 NG/ML (0.5-3.6)
[2017-02-21] MEDS ORDERED: HEPARIN-D5W INJ 250 ML IV SCH (14:30)
[2017-02-21] MEDS ORDERED: HEPARIN-NS/PF INJ 500 ML ONE (14:47)
[2017-02-21] MEDS ORDERED: MIDAZOLAM HCL 2 MG/2 ML VIAL ONE (15:05)
[2017-02-21] MEDS ORDERED: HEPARIN SODIUM - IV 10,000 UNITS/10 ML VIAL ONE (15:06)
[2017-02-21] MEDS ORDERED: VERAPAMIL HCL 5 MG/2 ML VIAL ONE (15:06)
[2017-02-21] MEDS ORDERED: NITROGLYCERIN INJ 5 ML ONE (15:06)
[2017-02-21] MEDS ORDERED: NITROGLYCERIN 0.4 MG SL 25 TABS/BTL SL PRN (15:15)
--- NOTE | 2017-02-21 16:03 | MB ---
cc: RAY ALLEN DATE OF CONSULTATION: 02/21/2017 DATE OF : 1955 REASON FOR CONSULTATION Chest pain. HISTORY OF PRESENT ILLNESS 61-year-old male with cardiac risk factors of hypertension, hyperlipidemia, obesity, former smoker, that [facility] radiating to the left arm. The patient reports he was in his usual state of health until yesterday where he had chest pain, neck pain , left arm pain and numbness for which he presented to [place] [facility] [place] He got admitted to the chest pain center. He was ruled out by cardiac enzymes and a nuclear stress test done showed no reversible defects/low risk. The patient was subsequently discharged home, however, the chest pains started again today. Today he presents with the same chest pain. In the emergency department EKG shows sinus bradycardia with nonspecific ST changes. Cardiac markers have been negative. Cardiology has been consulted for further management and evaluation. REVIEW OF SYSTEMS Review of systems negative except for what is mentioned in HPI. PAST MEDICAL HISTORY 1. Hypertension. 2. Hyperlipidemia. 3. Former smoker. PAST SURGICAL HISTORY No cardiac surgical history. SOCIAL HISTORY Denies alcohol use, tobacco use or illicit drug use. ALLERGIES NO KNOWN DRUG ALLERGIES. HOME MEDICATION 1. Pravastatin 40 mg p.o. daily. 2. Norvasc 5 mg p.o. daily. PHYSICAL EXAMINATION VITAL SIGNS: Temperature 98.1, heart rate 61, blood pressure 124/76, O2 sat 95% on room air. GENERAL: Awake, alert, oriented x3, in no acute distress. NECK: No JVD, no carotid bruits. HEART: Regular rate and rhythm. No murmurs, rubs or gallops. LUNGS: Clear to auscultation. No wheezes, no rhonchi, no rales. ABDOMEN: Obese. Positive bowel sounds, soft, nontender, nondistended. EXTREMITIES: No cyanosis or edema. LABORATORY DATA CBC hemoglobin 14, hematocrit of 42, platelet count 210, INR 1.0. Chemistries sodium 139, potassium 3.7, BUN 15, creatinine 1.01. Troponins less than 0.02 times four. Toxicology unremarkable. Urinalysis unremarkable. IMAGING STUDIES Chest x-ray shows no acute cardiopulmonary process. MPI shows minimal redistribution on the anterior wall involving a small segment of the myocardium with a normal wall motion. Risk category low. Head CT unremarkable. EKG Sinus bradycardia with nonspecific ST changes. ASSESSMENT/PLAN 61-year-old male with cardiac risk factors that include hypertension, obesity, former smoker, hyperlipidemia, presents with ongoing chest pain. He had a stress test yesterday with unremarkable results. However, he continues with the chest discomfort with typical angina, chest pain on exertion radiating to the jaw and to the left arm. He remains afebrile and hemodynamically stable. Given the patient's cardiac history and ongoing symptoms, I think it would be reasonable to perform a left heart catheterization to further assess coronary anatomy. Risks, benefits of left heart cath/intervention including but not limited to bleeding, acute kidney injury, infection, neurovascular trauma, MD, emergent open heart surgery, stroke and have been explained to the patient. The patient understands the risks and he is willing to proceed. RECOMMENDATIONS 1. Keep n.p.o. for left heart cath today. 2. Continue aggressive medical management for CAD. Thank you for the opportunity to take part in the care of this patient. Further recommendations depend on results left heart cath. MD VIVI Jha/TLL /2:28 PM /3:25 PM JAKE
[2017-02-21] MEDS ORDERED: ADENOSINE STRESS TEST INJ 90 MG/30 ML VIAL ONE (16:04)
[2017-02-21] MEDS ORDERED: ATROPINE SULFATE 1 MG/ML VIAL IV PRN (17:00)
[2017-02-21] MEDS ORDERED: ONDANSETRON HCL 4 MG/2 ML VIAL IV PRN (17:00)
[2017-02-21] MEDS ORDERED: MISC INFORMATION XX ONE (17:00)
[2017-02-21] MEDS ORDERED: ENALAPRILAT 1.25 MG/ML VIAL IV PUSH PRN (18:30)
[2017-02-21] MEDS ORDERED: amLODIPine BESYLATE 5 MG TAB PO PRN (18:30)
--- NOTE | 2017-02-21 18:32 | HHI.HP ---
[facility] Ad[facility] Diagnosis unstable angina Diagnoses: Chief Complaint: Chest pain Travel History International Travel<30 Days: No Contact w/Intl Traveler <30 Da: No Traveled to Known Affected Are: No History of Present Illness 61 years old male with history of hypertension hyperlipidemia obesity, former smoker quit 6-1/2 years ago before that used to smoke 2-1/2 pack per day presented to the ED complaining of transverse chest pain about 5-6 out of 10 worsened with exertion, no nausea or vomiting positive short of breath as the diaphoresis transferred to his neck and to his jaw. No fever or chills or like syndrome patient has been ruled out by cardiac enzyme and low risk stress test nuclear recently however he continued to have the pain, ED physician discussed with cardiology and he was found beneficial to do a heart catheter. EKG showed sinus bradycardia with none pacific ST changes. I saw patient after heart catheter he was pain-free no other symptoms. Review of Systems All 10 systems reviewed and was positive for what is mentioned in history of present illness otherwise negative Past Family Social History Past Medical History Hypertension, hyperlipidemia, tobacco abuse Past Surgical History Unremarkable Allergies: Coded Allergies: No Known Allergies (Verified , 02/21/17) Family History Heart disease in his 3 uncles, his dad has a pacemaker Social History Quit smoking 6-1/2 years ago before that he used to smoke to a half pack for almost 20 years, no alcohol or illicit drug abuse Physical Exam Vital Signs Vital Signs Date Time Temp Pulse Resp B/P Pulse Ox O2 Delivery O2 Flow Rate FiO2 02/21/17 12:42 61 18 124/76 95 Physical Exam GENERAL: This is a well-nourished, well-developed patient, in no apparent distress. SKIN: No rashes, ecchymoses or lesions. Cool and dry. HEAD: Atraumatic. Normocephalic. No temporal or scalp tenderness. EYES: Pupils equal round and reactive. Extraocular motions intact. No scleral icterus. No injection or drainage. ENT: Nose without bleeding, purulent drainage or septal hematoma. Throat without erythema, tonsillar hypertrophy or exudate. Uvula midline. Airway patent. NECK: Trachea midline. No JVD or lymphadenopathy. Supple, nontender, no meningeal signs. CARDIOVASCULAR: Regular rate and rhythm 3/6 systolic murmur RESPIRATORY: Clear to auscultation. Breath sounds equal bilaterally. No wheezes , rales, or rhonchi. GASTROINTESTINAL: Abdomen soft, non-tender, nondistended. No hepato-splenomegaly , or palpable masses. No guarding. MUSCULOSKELETAL: Extremities without clubbing, cyanosis, or edema. No joint tenderness, effusion, or edema noted. No calf tenderness. Negative Homans sign bilaterally. NEUROLOGICAL: Awake and alert. Cranial nerves II through XII intact. Motor and sensory grossly within normal limits. Five out of 5 muscle strength in all muscle groups. Normal speech. Laboratory Laboratory Tests Test 02/21/17 13:15 White Blood Count 7.4 Red Blood Count 4.71 Hemoglobin 14.2 Hematocrit 42.1 Mean Corpuscular Volume 89.3 Mean Corpuscular Hemoglobin 30.1 Mean Corpuscular Hemoglobin 33.8 Concent Red Cell Distribution Width 13.4 Platelet Count 210 Mean Platelet Volume 8.4 Neutrophils (%) (Auto) 74.9 Lymphocytes (%) (Auto) 16.4 Monocytes (%) (Auto) 5.7 Eosinophils (%) (Auto) 2.6 Basophils (%) (Auto) 0.4 Neutrophils # (Auto) 5.6 Lymphocytes # (Auto) 1.2 Monocytes # (Auto) 0.4 Eosinophils # (Auto) 0.2 Basophils # (Auto) 0.0 CBC Comment DIFF FINAL Differential Comment Prothrombin Time 10.6 Prothromb Time International 1.0 Ratio Activated Partial 28.3 Thromboplast Time Sodium Level 139 Potassium Level 3.7 Chloride Level 104 Carbon Dioxide Level 28.4 Anion Gap 7 Blood Urea Nitrogen 15 Creatinine 1.01 Estimat Glomerular Filtration 75 Rate Random Glucose 91 Calcium Level 8.4 Magnesium Level 2.2 Total Creatine Kinase 177 Creatine Kinase MB 1.5 Troponin I LESS THAN 0.02 Result Diagram: 02/21/17 1315 02/21/17 1315 Imaging EKG bradycardia sinus with nonspecific ST changes Assessment and Plan Assessment and Plan 61 years old male with history of hypertension hyperlipidemia remotely smoker came with Chest pain rule out ACS: Date is post recent nuclear stress test and cardiac enzyme which was low risk Appreciate cardiology consultation, Status post heart catheter by Dr. Sewell report pending Continue aspirin and amlodipine home patient not on beta lanette heart rate is in the 60 Hypertension: Continue amlodipine, Vasotec as needed Hyperlipidemia: Continue statin DVT prophylaxis Waqar Coronel MD Feb 21, 2017 18:32
--- NOTE | 2017-02-21 19:27 | MA ---
cc: TUSHARRAY De Santiago DATE: 02/21/2017 DATE OF : 1955 PROCEDURES PERFORMED 1. Left heart catheterization. 2. Selective right and left coronary angiography. 3. Selective right common femoral artery angiography. INDICATION Angina. PROCEDURE DESCRIPTION Consent signed. The patient was taken to the [facility] in a fasting state. The right groin was prepped and draped in a sterile fashion. Using 1% lidocaine for local anesthesia and a micropuncture kit, a 5-[place] sheath was inserted into the right common femoral artery. Right common femoral artery angiography was performed to confirm position of the sheath. Then selective right and left coronary angiography was performed with a JR-4 and a JL-4 diagnostic catheter. Angiography was taken in multiple views. An angled pigtail was introduced into the left ventricle over a wire followed by pressure recordings and pullback. The patient did have a question of significant blockage in the left circumflex artery that we decided to FFR given the patient' s symptoms. For this, the 5-[place] sheath was exchanged for a 6-[place] sheath. IV heparin was given for anticoagulation. The left main was engaged with a 3.5 EBU guide. The pressure wire was equalized outside the vessel, then it was introduced and navigated into the left circumflex artery and anchored distally. IFR performed, measurement was 1 and thus the procedure was terminated. The patient tolerated the procedure well without complications. Estimated blood loss less than 30 cc. Total contrast used 75 cc. The right groin access site was closed with a VASCADE closure device. RESULTS LEFT VENTRICLE The left ventricular pressure was 144/13 with an LVEDP of 18. The aortic pressure was 150/45 with a mean of 105. CORONARY ANGIOGRAPHY 1. RIGHT CORONARY ARTERY: The right coronary artery is a dominant vessel with minimal luminal irregularities throughout, calcified, but no significant obstructions. The PDA is patent with nonobstructive coronary artery disease. 2. LEFT MAIN: The left main is patent with SONDRA-III flow. 3. LAD: The LAD is a transapical vessel. It has minimal luminal irregularities throughout. It has a 30% lesion proximally and is mildly calcified. The first diagonal is patent. It has three side branches which have a 70% lesion in the side branch of the diagonal however this vessel is small. 4. RAMUS: The ramus is patent with minimal luminal irregularities and it is a small vessel. 5. LEFT CIRCUMFLEX ARTERY: The left circumflex artery has minimal luminal irregularities throughout. It has a focal proximal 60% lesion. This vessel had a negative IFR otherwise the vessel is patent with nonobstructive coronary artery disease. OM1 is a significant vessel, it has nonobstructive coronary artery disease and SONDRA-III flow. CONCLUSIONS 1. Nonobstructive coronary artery disease. 2. Elevated LVEDP. RECOMMENDATIONS 1. Continue aggressive medical management for primary prevention of coronary artery disease with optimization of medications for risk factors as well as therapeutic lifestyle changes, exercise and diet. 2. The patient should follow with his mortgage banker when discharged. MD VIVI Jha/ISAMAR /4:59 PM /6:16 PM JAKE
[2017-02-21] MEDS ORDERED: HEPARIN SODIUM - IV 10,000 UNITS/10 ML VIAL IV PRN ×2 (20:30)
[2017-02-21 22:09] LABS: APTT (PATIENT) 28.9 SEC (24.3-30.1)
[2017-02-21] MEDS ORDERED: BACITRACIN OINT 0.9 GM PKT ONE (23:01)
[2017-02-22] VITALS (12 sets, daily range): BP systolic 121–131; BP diastolic 81–85; PULSE 52–73; RESP 16–18; TEMP 98.1–98.5; O2SAT 95–96
[2017-02-22 07:22] LABS: HDL CHOLESTEROL 52.2 MG/DL (40.0-60.0)
[2017-02-22] MEDS ORDERED: ASPIRIN 325 MG TAB PO SCH (09:00)
[2017-02-22] MEDS ORDERED: PANTOPRAZOLE SOD 40 MG DELAYED RELEASE TAB PO SCH (09:00)
[2017-02-22] MEDS ORDERED: PRAVASTATIN SOD 40 MG TAB PO SCH (09:00)
[2017-02-22] MEDS ORDERED: ASPI325T PO (10:59)
[2017-02-22] MEDS ORDERED: PANT40TA3 PO (10:59)
--- NOTE | 2017-02-22 11:34 | HHI.PR ---
Subjective Remarks doing well , nno cp , no sob Objective Vitals Vital Signs Date Time Temp Pulse Resp B/P Pulse Ox O2 Delivery O2 Flow Rate FiO2 02/22/17 10:18 56 02/22/17 09:32 73 02/22/17 08:48 61 02/22/17 07:15 61 02/22/17 07:15 98.1 62 18 121/81 96 02/22/17 06:01 52 02/22/17 05:05 55 02/22/17 04:00 52 02/22/17 03:30 98.5 61 16 131/85 95 02/22/17 03:00 53 02/22/17 02:00 56 02/22/17 01:00 54 02/22/17 00:06 52 02/21/17 23:14 98.3 62 16 135/75 97 02/21/17 23:00 55 02/21/17 22:38 55 02/21/17 21:00 54 02/21/17 20:00 54 02/21/17 19:50 98.0 58 18 128/83 97 02/21/17 19:47 59 02/21/17 12:42 61 18 124/76 95 I/O 02/21/17 02/21/17 02/21/17 02/22/17 02/22/17 02/22/17 07:00 15:00 23:00 07:00 15:00 23:00 Intake Total 480 ml Output Total 625 ml Balance -145 ml Intake Oral 480 ml Output Urine Total 625 ml # Bowel Movements 0 Result Diagram: 02/21/17 1315 02/21/17 1315 Objective Remarks GENERAL: This is a well-nourished, well-developed patient, in no apparent distress. CARDIOVASCULAR: Regular rate and rhythm without murmurs, gallops, or rubs. RESPIRATORY: Clear to auscultation. Breath sounds equal bilaterally. No wheezes , rales, or rhonchi. GASTROINTESTINAL: Abdomen soft, non-tender, nondistended. Normal active bowel sounds MUSCULOSKELETAL: Extremities without clubbing, cyanosis, or edema. NEURO: Alert & Oriented x4 to person, place, time, situation. Moves all ext x4 A/P Assessment and Plan 61 years old male with history of hypertension hyperlipidemia remotely smoker came with Chest pain rule out ACS: pt is post recent nuclear stress test and cardiac enzyme which was low risk Appreciate cardiology consultation, Status post heart catheter by Dr. Sewell report >>1. Nonobstructive coronary artery disease., 2. Elevated LVEDP. cardio recs 1. Continue aggressive medical management for primary prevention of coronary artery disease with optimization of medications for risk factors as well as therapeutic lifestyle changes, exercise and diet. 2. 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 Continue aspirin and amlodipine home patient not on beta lanette heart rate is in the 60 Hypertension: Continue amlodipine, Vasotec as needed Hyperlipidemia: Continue statins/p cardiac cath showed 1. Nonobstructive coronary artery disease., 2. Elevated LVEDP. Discharge Planning Discharge patient to home Condition on discharge: Improved healthy heart Diet as tolerated Ad Porsha activity Rx written: Follow-up with primary care physician, cardiology in 1 week Waqar Coronel MD Feb 22, 2017 11:34
--- NOTE | 2017-02-22 16:31 | EKG ---
Date Performed: 02/21/2017 Time Performed: 13:12:06 PTAGE: 61 years EKG: SINUS BRADYCARDIA BORDERLINE LEFT AXIS DEVIATION MODERATE VOLTAGE CRITERIA FOR LVH, CONSIDE R NORMAL VARIANT NONSPECIFIC T-WAVE ABNORMALITY Compared to prior tracing no significant change OSCAR SANCHEZ ECG PREVIOUS TRACING : 02/19/2017 21.18 DOCTOR: Jairon Gale Interpretating Date/Time 02/22/2017 16:30:39
== END 2017-02-22 11:58 | disposition home or self-care (01) ==
LOC: NEPA 12:21 → NEDA 15:03 → HCIN 19:40
PROVIDERS: ADMIT Hospitalist; ATTEND Hospitalist
DX: I25.119 Atherosclerotic heart disease of native coronary artery with unspecified angina pectoris (principal); I25.84 Coronary atherosclerosis due to calcified coronary lesion; I10 Essential (primary) hypertension; E78.5 Hyperlipidemia, unspecified; E66.9 Obesity, unspecified; E78.00 Pure hypercholesterolemia, unspecified; K21.9 Gastro-esophageal reflux disease without esophagitis; Z87.891 Personal history of nicotine dependence; Z68.34 Body mass index [BMI] 34.0-34.9, adult
CPT/HCPCS: 80048; 80061; 82550; 82552; 83735; 84484; 85025; 85610; 85730; 93005; 93458; 93571; 99291; C1760; C1769; C1887; C1893; G0269; G0378; J0153; J1644; J2250; J3010; Q9967